=== PATIENT | male | born 1980 | race Caucasian/White ===

== ENCOUNTER 2020-11-01 09:16 | Day surgery (SDC) | payer OTHER, SELFPAY ==
[~2020-11-01] VITALS: Ht 180.3 cm; Wt 90.7 kg
[2020-11-01] MEDS ORDERED: LIDOCAINE 2% 100 MG/5 ML UJET TP ONE (11:06)
[2020-11-01] MEDS ORDERED: MIDAZOLAM 5 MG/5 ML VIAL ONE (11:06)
[2020-11-01] MEDS ORDERED: fentaNYL citrate 0.05 MG/ML VIAL ONE (11:06)
[2020-11-01] MEDS ORDERED: fentaNYL citrate 0.05 MG/ML VIAL IVP ONE (12:05)
[2020-11-01] MEDS ORDERED: MIDAZOLAM 2 MG/2 ML VIAL IVP ONE (12:05)
== END 2020-11-01 12:17 | disposition home or self-care (01) ==
LOC: MMU 09:16 → MDS 09:16
PROVIDERS: ATTEND Internal Medicine Gastroenterology
DX: K59.00 Constipation, unspecified (principal); R11.0 Nausea; R93.3 Abnormal findings on diagnostic imaging of other parts of digestive tract; Z20.822 Contact with and (suspected) exposure to COVID-19; Z79.899 Other long term (current) drug therapy
CPT/HCPCS: 43235; 45378; J2250; J3010; U0003